=== PATIENT | female | born 1980 | race Caucasian/White ===

== ENCOUNTER → 2018-09-09 | Outpatient (CLI) | payer BC ==
[~2018-09-09] MED LIST: ONDA8TAB13 PO; TRAM50TA2 PO
--- NOTE | 2018-09-09 21:03 | Diagnostic Imaging Report ---
INDICATION: Palpable lump in the right breast. COMPARISON: No prior mammograms are available for comparison. EXAMINATION: A BB marker was placed at the area of palpable abnormality in the upper-outer right breast. A unilateral right 2D and 3D diagnostic mammography was performed. FINDINGS: There is a nodular density in the upper-outer right breast in the region of the BB marker. This may represent a small cluster of cysts. Further evaluation of this area with ultrasound is recommended. There are no suspicious calcifications identified. IMPRESSION: Nodular density in the upper outer right breast near the area of palpable abnormality, approximately 5-6 cm from the nipple. Further evaluation with ultrasound is recommended. ACR BI-RADS Category 0: Incomplete. (Needs additional imaging evaluation). Result letter will be mailed to the patient. Note: At least 10% of breast cancer is not imaged by mammography. Dictated by: Dictated on workstation # [id number]
--- NOTE | 2018-09-09 21:06 | Diagnostic Imaging Report ---
INDICATION: Right breast lump. COMPARISON: Correlation is made with diagnostic mammogram from earlier the same day. EXAMINATION: Sonographic interrogation of the area of lump in the outer right breast was performed. FINDINGS: There is a circumscribed hypoechoic nodule at the 9 o'clock location of the right breast, 5 cm from the nipple, measuring 4 mm x 5 mm x 4 mm. No internal vascularity is seen. No abnormal shadowing is seen. IMPRESSION: Circumscribed hypoechoic nodule in the outer right breast at the area of palpable abnormality consistent with a small cyst. No suspicious abnormality is seen. Patient may return to routine annual screening mammography. ACR BI-RADS Category 2: Benign findings. Result letter will be mailed to the patient. Note: At least 10% of breast cancer is not imaged by mammography. Dictated by: Dictated on workstation # [id number]
== END ==
LOC: RAD 09:03
PROVIDERS: ATTEND Nurse Practitioner
DX: N63.11 Unspecified lump in the right breast, upper outer quadrant (principal)

== ENCOUNTER → 2022-01-07 | Outpatient (CLI) | payer BC ==
[~2022-01-07] MED LIST changes: +PHEN37.58; -TRAM50TA2 PO; +TRM50T PO
--- NOTE | 2022-01-07 12:39 | Diagnostic Imaging Report ---
PROCEDURE: US Thyroid. TECHNIQUE: Multiple Real-time grayscale images were obtained of the thyroid in various projections. INDICATION: Thyroid nodule. COMPARISON: No prior studies are available for comparison. FINDINGS: The right lobe of the thyroid measures 5.3 x 1.6 x 1.5 cm and the left lobe measures 5.3 x 1.0 x 1.8 cm. The isthmus is 3 mm in thickness. Both lobes of the thyroid gland appear to be fairly homogeneous. There is a tiny circumscribed hypoechoic nodule in the lower pole of the left lobe measuring 4 mm x 3 mm x 5 mm. No other thyroid masses are detected. No dominant nodule is seen. IMPRESSION: Tiny benign-appearing nodule in the lower pole of the left lobe of the thyroid. The study is otherwise unremarkable. Dictated by: Dictated on workstation # [id number]
== END ==
LOC: RAD 11:03
PROVIDERS: ATTEND Nurse Practitioner Family
DX: E04.1 Nontoxic single thyroid nodule (principal)
CPT/HCPCS: 76536